=== PATIENT | male | born 1955 | race Caucasian/White ===

== ENCOUNTER 2023-01-19 09:15 | Emergency (ER) | payer MEDICARE, OTHER, SELFPAY ==
[2023-01-19] VITALS (7 sets, daily range): BP systolic 128–159; BP diastolic 74–90; PULSE 77–103; RESP 17–36; TEMP 37.4–38.2; O2SAT 95–99; BMI 23.5; BMI 24.3
--- NOTE | 2023-01-19 09:13 | ECG_ITS ---
APPROVED REPORT Exam: Resting ECG HR:99 bpm ECG Measurements Heart Rate 99 AXES LA 139 P 86 QRSd 85 QRS -54 QT 316 T 82 QTc 372 Conclusion SINUS RHYTHM INDETERMINATE AXIS ABNORMAL ECG UNCONFIRMED REPORT Electronically signed by : Ed Irizarry MD 01/19/2023 20:41:07
--- NOTE | 2023-01-19 09:17 | XR_ITS ---
FINAL REPORT CLINICAL HISTORY: soa FINDINGS: The heart size is normal. The mediastinum is within normal limits. The lungs are hyperinflated consistent with COPD. There is mild atelectasis or scarring in the left lung base. There is no pleural effusion. There is no pneumothorax. There are postoperative changes in the lower cervical spine. IMPRESSION: No acute cardiopulmonary process. Reviewed, Interpreted and Dictated by Zaid Almanzar III, MD Transcribed by Lalito Sun Authenticated and [facility]
[2023-01-19 09:33] LABS: Basophils # 0.1 K/mm3 (0-0.2); Basophils % 1.6 % (0.1-2.0); Chloride 103 mmol/L (98-107); Coronavirus 19, PCR Not Detected (NotDetected); Eosinophils % 0.4 % (0.1-12.0); Hematocrit 48.4 % (42.0-52.0); Hemoglobin 15.5 g/dL (14.1-18.0); Influenza A, PCR Not Detected (NotDetected); Influenza B, PCR Not Detected (NotDetected); Lymphocytes # 0.6 K/mm3 (0.7-4.5); Lymphocytes % 13.1 % (10-50); Mean Corpuscular Hemoglobin 32.6 pg (27.0-31.2); Mean Platelet Volume 8.3 fl (7.4-10.4); Monocytes # 0.4 K/mm3 (0.1-1.0); Monocytes % 8.2 % (1.7-9.3); Neutrophils # 3.8 K/mm3 (1.8-7.8); Neutrophils % 76.8 % (37.0-80.0); Platelet Count 87 K/mm3 (142-424); Red Blood Count 4.74 M/mm3 (4.60-6.20); Red Cell Distribution Width 13.6 % (11.5-17.5); White Blood Count 4.9 K/mm3 (4.8-10.8)
[2023-01-19 09:34] LABS: Potassium 4.1 mmoL/L (3.5-5.1); Sodium 137 mmol/L (136-145)
[2023-01-19 09:36] LABS: Alanine Aminotransferase 53 U/L (12-78); Aspartate Amino Transferase 52 U/L (17-59); Blood Urea Nitrogen 19 mg/dl (9-20); Creatinine Clearance Estimated 73 mL/min (50-200); Estimated Glomerular Filt Rate 97 ml/min (>60); GFR (African American) 117 ML/MIN (>60)
[2023-01-19 09:37] LABS: Albumin Level 4.5 g/dl (3.5-5.0); Albumin/Globulin Ratio 1.1 (1.1-1.8); Alkaline Phosphatase 75 U/L (38-126); Anion Gap 13.1 mEq/L (5-15); Calcium 8.7 mg/dl (8.4-10.2); Carbon Dioxide 25 mmol/L (22.0-30.0); Glucose 105 mg/dl (74-100); Magnesium 2.1 mg/dl (1.6-2.3); Total Protein,Serum 8.5 g/dl (6.3-8.2)
--- NOTE | 2023-01-19 09:45 | PC.NURSE ---
pt provided with a urinal for ua
[2023-01-19 09:46] LABS: NT Pro Brain Natriuretic Pep. 307 pg/mL (0-125)
[2023-01-19 09:52] LABS: Troponin I < 0.01 ng/ml (0.00-0.034)
--- NOTE | 2023-01-19 10:05 | [facility].EDGENADL ---
Discharge Plan Disposition Patient Disposition: Home, Self-Care Prescriptions Prescriptions: New azithromycin [azithromycin] 500 mg tablet 500 mg PO DAILY Qty: 3 0RF dextromethorphan-guaifenesin [Adult Tussin DM] 10-100 mg/5 mL syrup 10 ml PO Q8H PRN (Reason: cough) Qty: 120 0RF Referrals Follow up/Referrals: Provider,Referral, MD [Primary Care Provider] - See instructions Clinical Impressions Clinical Impression: Acute bronchitis Discharge ED Provider: Rubio Reece General Adult HPI General Chief complaint: Shortness of Breath/Dyspnea Stated complaint: chest pain Time Seen by Provider: 01/19/23 09:20 Mode of Arrival: Ambulatory Source of Information: Patient Limitations: No Limitations Description of Symptoms (Recalled from ER Triage Doc. by RN): pt to ED with cough, congestion, fever, body aches and chills since yesterday with increasing SOB on exertion today. History of Present Illness HPI narrative: 67-year-old male presents with a few days of cough congestion and fever and body aches. He says that this has been ongoing for the last few days and he had a lot of productive cough last night. Was coughing a lot and could not sleep at night. He has difficulty breathing when he takes a deep breath. History of lung cancer treated with radiation recently. Has 20-year pack year smoking history he quit 5 months ago. No chest pain abdominal pain nausea vomiting. He has had watery diarrhea as well. No bleeding from the bowels. Related Data Previous Rx's Medication Instructions Recorded azithromycin 500 mg tablet 500 mg PO DAILY #3 tabs 01/19/23 dextromethorphan-guaifenesin 10 10 ml PO Q8H PRN cough #120 mL 01/19/23 mg-100 mg/5 mL oral syrup (Adult Tussin DM) Allergies Allergy/AdvReac Type Severity Reaction Status Date / Time No Known Allergies Allergy Verified 01/19/23 09:18 [facility] Disclaimer: The information contained in this section may have been updated after the patient was seen, as this information can be updated by other users. Social History Smoking Status: Never smoker alcohol intake: former current occupational status: retired Travel in the last 8 weeks: Inside the [place] ROS Obtained: Yes All systems reviewed & no additional complaints except as documented Constitutional Constitutional: Reports fever(s) and Denies headache(s) Eyes Eyes: Denies dry eyes ENT Ears, Nose, Mouth, and Throat: Denies headache(s) and Denies lip swelling Cardiovascular Cardiovascular: Reports dyspnea Respiratory Respiratory: Reports dyspnea Gastrointestinal Gastrointestingal: Denies constipation Genitourinary Male Genitourinary: Denies flank pain Musculoskeletal Musculoskeletal: Denies arthralgias Integumentary/Breasts Skin/Breast: Denies rash Neurologic Neurologic: Denies headache(s) Hematologic/Lymphatic Henatologic/Lymphatic: Denies easy bleeding Allergic/Immunologic Allergic/Immunologic: Denies lip swelling Physical Exam General General appearance: alert and in no apparent distress Eye Eye exam: Present PERRL and EOMI ENT ENT exam: Present normal exam and normal oropharynx Neck Neck exam: Present normal inspection Chest Chest inspection: Present symmetric chest wall rise Respiratory Respiratory exam: Present wheezes (Mild wheezing bilateral); Absent respiratory distress Cardiovascular Cardiovascular exam: Present regular rate and normal rhythm Abdominal Exam Abdominal exam: Present soft; Absent distention, tenderness, guarding, rebound, Chaudhry's sign or tenderness at McBurney's Point Rectal Exam Rectal exam: Present deferred Back Exam Back exam: Present normal inspection Neurological Exam Neurological exam: Present alert and oriented X3 Psychiatric Psychiatric exam: Present normal affect and normal mood Skin Skin exam: Present warm, dry and intact Lymphatic Lymphatic Findings: no adenopathy Medical Decision Making Medical Records Medical records rev
--- NOTE | 2023-01-19 11:19 | PC.NURSE ---
rounded on pt at this time. reminded pt of needing ua
[2023-01-19 11:40] LABS: Microscopic, Urine URINE MICROSCOPIC (MICROSCOPIC)
[2023-01-19 11:52] LABS: Appearance,Urine CLEAR (Clear); Blood, Urine 1+ (Negative); Color,Urine DK YELLOW (Yellow); Glucose,Urine (UA) Negative (Negative); Ketones,Urine 2+ (Negative); Leukocyte Esterase,Urine Negative (Negative); Nitrate,Urine Negative (Negative); Protein,Urine 1+ (Negative); Specific Gravity, Urine >= 1.030 (1.005-1.030)
[2023-01-19 12:01] LABS: Bilirubin,Urine Negative (Negative)
[2023-01-19 12:04] LABS: Bacteria,Urine Trace /lpf; Squamous Epithelial Cell,Urine Occasional #/hpf (0-5)
== END 2023-01-19 12:12 | disposition home or self-care (01) ==
PROVIDERS: Emergency Provider Emergency Medicine
DX: R07.9 Chest pain, unspecified (principal); J20.9 Acute bronchitis, unspecified; R06.02 Shortness of breath
CPT/HCPCS: 71045; 80053; 81001; 83735; 83880; 84484; 85025; 93005; 96360; 99285; C9803; U0003; U0005